=== PATIENT | male | born 1985 | race Caucasian/White ===

== ENCOUNTER 2018-09-01 07:35 | Emergency (ER) | payer MEDICAID ==
[~2018-09-01] VITALS: Ht 182.9 cm; Wt 72.0 kg
[~2018-09-01 07:35] MED LIST: CEPH-572 PO; ONDA4TAB6 PO; OXYC-150 PO
[2018-09-01 10:03] VITALS: BP 128/82
== END 2018-09-01 10:19 | disposition home or self-care (01) ==
LOC: ER 07:36
DX: S61.211D Laceration without foreign body of left index finger without damage to nail, subsequent encounter (principal); S61.213D Laceration without foreign body of left middle finger without damage to nail, subsequent encounter; S61.215D Laceration without foreign body of left ring finger without damage to nail, subsequent encounter; Z48.00 Encounter for change or removal of nonsurgical wound dressing; Z79.899 Other long term (current) drug therapy; W26.8XXD Contact with other sharp object(s), not elsewhere classified, subsequent encounter
CPT/HCPCS: 99283

== ENCOUNTER 2019-07-21 12:24 | Emergency (ER) | payer MEDICAID ==
[~2019-07-21] VITALS: Ht 182.9 cm; Wt 69.8 kg
[~2019-07-21 12:24] MED LIST changes: -CEPH-572 PO
[2019-07-21 14:27] VITALS: BP 125/83
== END 2019-07-21 14:30 | disposition home or self-care (01) ==
LOC: ER 12:25
DX: S61.214A Laceration without foreign body of right ring finger without damage to nail, initial encounter (principal); R05 Cough; D84.9 Immunodeficiency, unspecified; W26.8XXA Contact with other sharp object(s), not elsewhere classified, initial encounter; Y93.89 Activity, other specified; Y92.89 Other specified places as the place of occurrence of the external cause; Y99.8 Other external cause status
CPT/HCPCS: 29130; 93005; 99283